=== PATIENT | male | born 1955 | race Caucasian/White ===

== ENCOUNTER 2016-11-10 12:01 | Inpatient (IN) | payer OTHER ==
[~2016-11-10] VITALS: Ht 182.9 cm; Wt 89.4 kg
[2016-11-10 12:28] LABS: RED BLOOD COUNT 5.69 M/UL (4.20-5.50); WHITE BLOOD COUNT 10.3 K/UL (4.5-11.0)
[2016-11-10] MEDS ORDERED: ZANAFLEX4 M1 PO (18:35)
[2016-11-10] MEDS ORDERED: ATORVASTATIN CA40 MG PO (18:35)
[2016-11-10] MEDS ORDERED: TRAZODONE HCL100 MG PO (18:35)
[2016-11-10] MEDS ORDERED: VIAGRA50 MG PO (18:36)
[2016-11-10] MEDS ORDERED: SYNTHROID150 MCG PO (18:37)
[2016-11-10] MEDS ORDERED: ZESTRIL/PRINIVI10 MG PO (18:37)
[2016-11-10] MEDS ORDERED: LIPOFEN150 MG PO (18:38)
[2016-11-11] MEDS ORDERED: MAXEPA500 MG PO (00:40)
[2016-11-11] MEDS ORDERED: VITAMIN D250000 UNIT PO (00:43)
[2016-11-11] MEDS ORDERED: VITAMIN B-122500 MCG SL (00:45)
[2016-11-11] MEDS ORDERED: ARIMIDEX 1 MG TA1 MG PO (00:46)
[2016-11-11 05:56] LABS: HEMOGLOBIN 16.2 gm/dl (14.0-17.5); RED BLOOD COUNT 5.17 M/UL (4.20-5.50)
[2016-11-11 05:57] LABS: WHITE BLOOD COUNT 7.1 K/UL (4.5-11.0)
[2016-11-13 05:20] LABS: BUN/CREATININE RATIO 15 (0-10)
[2016-11-13] MEDS ORDERED: LACTINEX PACKET1 PKT PO (14:08)
== END 2016-11-13 16:40 | disposition home or self-care (01) | DRG 683 ==
LOC: ER1 12:01 → MED SURG 4 14:12 → ZEROF 14:12 → MED SURG 4 17:28
PROVIDERS: Emergency Medicine; Physician Assistant Medical; ADMIT Hospitalist
DX: N17.9 Acute kidney failure, unspecified (principal); E87.2 Acidosis; A08.4 Viral intestinal infection, unspecified; I10 Essential (primary) hypertension; E78.5 Hyperlipidemia, unspecified; E03.9 Hypothyroidism, unspecified; R11.2 Nausea with vomiting, unspecified; Z85.828 Personal history of other malignant neoplasm of skin; Z83.0 Family history of human immunodeficiency virus [HIV] disease; Z82.49 Family history of ischemic heart disease and other diseases of the circulatory system; Z83.3 Family history of diabetes mellitus; Z80.9 Family history of malignant neoplasm, unspecified; D69.6 Thrombocytopenia, unspecified
CPT/HCPCS: 36415; 80048; 80053; 82150; 82570; 83690; 83735; 84300; 84439; 84443; 85025; 87045; 87046; 89055; 99285; J2550; J7030; J7050; J7120